=== PATIENT | female | born 1940 | race American Indian/Alaskan Native ===

== ENCOUNTER 2017-01-30 09:53 | Emergency (ER) | payer MEDICARE ==
[2017-01-30] MEDS ORDERED: PERCOCET 5/325 PO ONE (10:20)
[2017-01-30] MEDS ORDERED: LIDODERM 5% TD SCH (11:00)
--- NOTE | 2017-01-30 11:39 | Emergency Department Report ---
ED General Adult HPI - General Chief complaint: Back Pain/Injury Stated complaint: BACK PAIN Time Seen by Provider: 01/30/17 10:13 Source: patient, EMS Mode of arrival: Stretcher Limitations: Physical Limitation - History of Present Illness Initial comments: Patient system a 6-year-old female past medical history of diabetes who presents with back pain. Patient states that she has had back pain for months however her back pain is hurting more today. Patient states the pain is in her lower back as an achy type of pain it radiates all throughout her body. She says she try to take some pain medicine but didn't help much. Patient denies any paresthesia or bladder or bowel incontinence. Patient has had hardware placed in her back before. Severity scale (0 -10): 8 - Related Data Home Medications Medication Instructions Recorded Confirmed Last Taken Furosemide [Lasix TAB] 20 mg PO QDAY 11/29/16 12/04/16 Unknown Gabapentin [Neurontin] 300 mg PO Q8HR 11/29/16 11/30/16 Unknown HYDROcodone/APAP 5-325 [[place] 1 mg PO Q6HR PRN 11/29/16 12/04/16 Unknown 5-325 mg TAB] Hydralazine HCl [Apresoline TAB] 50 mg PO TID 11/29/16 12/04/16 Unknown Indomethacin [Indocin] 25 mg PO QDAY 11/29/16 12/04/16 Unknown PARoxetine [Paxil] 10 mg PO DAILY 11/29/16 11/30/16 Unknown Promethazine [Phenergan TAB] 25 mg PO Q6HR 11/29/16 12/04/16 Unknown Simvastatin [Zocor TAB] 40 mg PO QDAY 11/29/16 12/04/16 Unknown Sulindac 200 mg PO QDAY 11/29/16 12/04/16 Unknown Previous Rx's Medication Instructions Recorded Last Taken Type Aspirin [Adult Low Dose Aspirin EC] 81 mg PO QDAY #30 tablet. 12/05/16 Unknown Rx Levofloxacin [Levaquin TAB] 500 mg PO Q24HR #3 tablet 12/05/16 Unknown Rx Losartan [Cozaar] 100 mg PO QDAY #60 tablet 12/05/16 Unknown Rx Omeprazole 40 mg PO QDAY #30 capsule. 12/05/16 Unknown Rx Simvastatin [Zocor TAB] 40 mg PO QHS #30 tablet 12/05/16 Unknown Rx amLODIPine [Norvasc] 10 mg PO BID #60 tablet 12/05/16 Unknown Rx busPIRone [Buspar] 10 mg PO BID #60 tablet 12/05/16 Unknown Rx glipiZIDE [glipiZIDE ER] 2.5 mg PO QDAY #30 tab.er.24 12/05/16 Unknown Rx hydrALAZINE [Apresoline TAB] 100 mg PO Q8H #90 tab 12/05/16 Unknown Rx metFORMIN [Glucophage] 500 mg PO BID #60 tablet 12/05/16 Unknown Rx Allergies Allergy/AdvReac Type Severity Reaction Status Date / Time No Known Allergies Allergy Unverified 11/29/16 22:24 ED Review of Systems ROS: Stated complaint: BACK PAIN Other details as noted in HPI Constitutional: denies: chills, fever Eyes: denies: eye pain, eye discharge, vision change ENT: denies: ear pain, throat pain Respiratory: denies: cough, shortness of breath, wheezing Cardiovascular: denies: chest pain, palpitations Endocrine: no symptoms reported Gastrointestinal: denies: abdominal pain, nausea, diarrhea Genitourinary: denies: urgency, dysuria, discharge Musculoskeletal: back pain. denies: joint swelling, arthralgia Skin: denies: rash, lesions Neurological: denies: headache, weakness, paresthesias Psychiatric: denies: anxiety, depression Hematological/Lymphatic: denies: easy bleeding, easy bruising ED Past Medical Hx - Past Medical History Previous Medical History?: Yes Hx Hypertension: Yes Hx CVA: Yes Hx Diabetes: Yes - Surgical History Past Surgical History?: Yes Additional Surgical History: Back surgery - Social History Smoking Status: Never Smoker Substance Use Type: None - Medications Home Medications: Home Medications Medication Instructions Recorded Confirmed Last Taken Type Furosemide [Lasix TAB] 20 mg PO QDAY 11/29/16 12/04/16 Unknown History Gabapentin [Neurontin] 300 mg PO Q8HR 11/29/16 11/30/16 Unknown History HYDROcodone/APAP 5-325 [[place] 1 mg PO Q6HR PRN 11/29/16 12/04/16 Unknown History 5-325 mg TAB] Hydralazine HCl [Apresoline TAB] 50 mg PO TID 11/29/16 12/04/16 Unknown History Indomethacin [Indocin] 25 mg PO QDAY 11/29/16 12/04/16 Unknown History PARoxetine [Paxil] 10 mg PO DAILY 11/29/16 11/30/16 Unknown History Promethazine [Phenergan TAB] 25 mg PO Q6HR 11/29/16 12/04/16 Unknown History Simvastatin [Zocor TAB] 40 mg PO QDAY 11/29/16 12/04/16 Unknown History Sulindac 200 mg PO QDAY 11/29/16 12/04/16 Unknown History Aspirin [Adult Low Dose Aspirin EC] 81 mg PO QDAY #30 tablet. 12/05/16 Unknown Rx Levofloxacin [Levaquin TAB] 500 mg PO Q24HR #3 tablet 12/05/16 Unknown Rx Losartan [Cozaar] 100 mg PO QDAY #60 tablet 12/05/16 Unknown Rx Omeprazole 40 mg PO QDAY #30 capsule. 12/05/16 Unknown Rx Simvastatin [Zocor TAB] 40 mg PO QHS #30 tablet 12/05/16 Unknown Rx amLODIPine [Norvasc] 10 mg PO BID #60 tablet 12/05/16 Unknown Rx busPIRone [Buspar] 10 mg PO BID #60 tablet 12/05/16 Unknown Rx glipiZIDE [glipiZIDE ER] 2.5 mg PO QDAY #30 tab.er.24 12/05/16 Unknown Rx hydrALAZINE [Apresoline TAB] 100 mg PO Q8H #90 tab 12/05/16 Unknown Rx metFORMIN [Glucophage] 500 mg PO BID #60 tablet 12/05/16 Unknown Rx ED Physical Exam - General Limitations: Physical Limitation General appearance: alert, in no apparent distress - Head Head exam: Present: atraumatic, normocephalic - Eye Eye exam: Present: normal appearance - ENT ENT exam: Present: mucous membranes moist - Neck Neck exam: Present: normal inspection - Respiratory Respiratory exam: Present: normal lung sounds bilaterally. Absent: respiratory distress - Cardiovascular Cardiovascular Exam: Present: regular rate, normal rhythm. Absent: systolic murmur, diastolic murmur, rubs, gallop - GI/Abdominal GI/Abdominal exam: Present: soft, normal bowel sounds - Extremities Exam Extremities exam: Present: normal inspection - Back Exam Back exam: Present: normal inspection, paraspinal tenderness - Neurological Exam Neurological exam: Present: alert, oriented X3 - Psychiatric Psychiatric exam: Present: normal affect, normal mood - Skin Skin exam: Present: warm, dry, intact, normal color. Absent: rash ED Course Vital Signs 01/30/17 01/30/17 01/30/17 09:58 09:59 10:30 Temperature 98.1 F Pulse Rate 98 H Respiratory 16 Rate Blood Pressure 168/73 168/73 181/83 O2 Sat by Pulse 98 Oximetry 01/30/17 01/30/17 01/30/17 10:38 11:00 11:11 Temperature Pulse Rate Respiratory 16 16 Rate Blood Pressure 172/87 O2 Sat by Pulse 100 Oximetry 01/30/17 01/30/17 01/30/17 11:30 12:00 12:31 Temperature Pulse Rate Respiratory Rate Blood Pressure 162/85 146/81 158/70 O2 Sat by Pulse Oximetry ED Medical Decision Making - Medical Decision Making Chief medical diagnosis: Lumbar sacral strain Differential medical diagnosis: Slipped disc, hyperglycemia I'll give patient oral pain medication, Lidoderm patch and [id number] glucose. Patient is feeling better after pain medication and has a Lidoderm patch on I will send the patient home with follow-up with her PCP. Discussed with patient that she will not get any prescriptions for any opioid medications. Patient agrees with plan and additional verbal discharge instructions were given. Patient's euphg-kw-iciz glucose is 110. Critical care attestation.: If time is entered above; I have spent that time in minutes in the direct care of this critically ill patient, excluding procedure time. ED Disposition Clinical Impression: Lower back pain Qualifiers: Chronicity: chronic Back pain laterality: unspecified Sciatica presence: with sciatica Sciatica laterality: bilateral sciatica Qualified Code(s): M54.41 - Lumbago with sciatica, right side Disposition: -01 TO HOME OR SELFCARE Is pt being admited?: No Does the pt Need Aspirin: No Condition: Stable Instructions: Low Back Strain (ED) Referrals: PRIMARY CARE, [Primary Care Provider] - 3-5 Days
[2017-01-30 13:36] VITALS: BP 162/85
== END 2017-01-30 13:36 | disposition home or self-care (01) ==
LOC: ED 09:53
DX: M54.41 Lumbago with sciatica, right side (principal); I10 Essential (primary) hypertension; E11.9 Type 2 diabetes mellitus without complications
CPT/HCPCS: 82962

== ENCOUNTER 2017-02-17 00:58 | Inpatient (IN) | payer MEDICARE ==
[2017-02-17 02:52] LABS: Basophils % (Auto) 1.3 % (0.0-1.8); Eosinophils % (Auto) 1.4 % (0.0-4.3); Hemoglobin 12.2 gm/dl (10.1-14.3); Mean Corpuscular HGB Conc 33 % (30-34); Mean Corpuscular Hemoglobin 29 pg (28-32); Mean Corpuscular Volume 87 fl (79-97); Platelet Count 347 K/mm3 (140-440); Red Blood Count 4.28 M/mm3 (3.65-5.03); Red Cell Distribution Width 16.5 % (13.2-15.2); White Blood Count 8.8 K/mm3 (4.5-11.0)
[2017-02-17 03:01] LABS: Calcium 9.3 mg/dL (8.4-10.2); Chloride 91.1 mmol/L (98-107); Potassium 4.2 mmol/L (3.6-5.0)
--- NOTE | 2017-02-17 04:25 | XRay Report ---
FINAL REPORT EXAM: XR CHEST ROUTINE 2V HISTORY: Shortness of breath TECHNIQUE: Frontal and lateral radiographs of the chest were obtained. No prior studies are available for comparison. FINDINGS: The cardiac silhouette and mediastinum are within normal limits. The lungs are clear bilaterally, without focal infiltrate or effusion. There is no pneumothorax. There is a mild thoracic dextroscoliosis, with mild spondylotic and degenerative changes. There is partial visualization of spinal fixation rods and bilateral pedicle screws in the lower thoracic and visualized lumbar spine. IMPRESSION: No active disease seen in the chest.
--- NOTE | 2017-02-17 04:57 | XRay Report ---
FINAL REPORT EXAM: XR SPINE LUMBOSACRAL 2-3V HISTORY: increased back pain s/p back sx oct 2016 COMPARISONS: None. FINDINGS: AP and lateral portable views of the lumbar spine Patient with status post 4 level laminectomy, posterior discectomy and fusion in the lower thoracic and lumbar spine (probably T12 through L4. There is abnormal kyphosis at the thoracolumbar junction. The 2 most superior levels of hardware are not normally seated within vertebral bodies on lateral view. Ill-defined endplates of L1 foot may be secondary to vertebral body fracture. There is retropulsion of the T12-L1 disc spacer. No hardware fracture is identified. IMPRESSION: Posterior fusion hardware does not appear well seated within T12 and L1. The L1 vertebral body may be fractured. There is retropulsion of the T12-L1 disc spacer. Correlation with prior postoperative imaging is requested and spinal surgery consultation is recommended. Dr. Purvis discussed findings with Dr Multani at 0348 central Time on 02/17/2017 immediately following the examination.
--- NOTE | 2017-02-17 04:58 | XRay Report ---
FINAL REPORT EXAM: XR SPINE THORACIC 2V HISTORY: increased back pain s/p back surgery oct 2016 COMPARISONS: None. FINDINGS: AP and lateral portable views of the thoracic spine Partially imaged superior portion of patient's posterior fusion hardware at the thoracolumbar junction. There is abnormal kyphosis at the thoracolumbar junction. The 2 most superior levels of hardware are not normally seated within vertebral bodies on lateral view. Ill-defined endplates of L1 may be secondary to vertebral body fracture. There is retropulsion of the T12-L1 disc spacer. No hardware fracture is identified. IMPRESSION: Posterior fusion hardware does not appear well seated within T12 and L1, which is better demonstrated on lumbar spine radiographs of the same date. The L1 vertebral body may be fractured. There is retropulsion of the T12-L1 disc spacer. Correlation with prior postoperative imaging is requested and spinal surgery consultation is recommended. Dr. Purvis discussed findings with Dr Multani at 0348 central Time on 02/17/2017 immediately following the examination.
[2017-02-17 05:17] LABS: Bilirubin,Urine NEG (Negative); Blood,Urine NEG (Negative); Ketones,Urine NEG (Negative); Leukocyte Esterase,Urine SM (Negative); Nitrite,Urine NEG (Negative); Protein,Urine <15 mg/dL mg/dL (Negative); Urobilinogen,Urine < 2.0 mg/dL (<2.0)
[2017-02-17] MEDS ORDERED: ZOFRAN ONE (10:11)
[2017-02-17] MEDS ORDERED: MORPHINE ONE (10:11)
[2017-02-17] MEDS ORDERED: ZOFRAN IM ONE (10:15)
[2017-02-17] MEDS ORDERED: MORPHINE IM ONE (10:15)
[2017-02-17] MEDS ORDERED: NORCO 5/325 PO ONE (11:16)
[2017-02-17] MEDS ORDERED: NACL 0.9% 1000 ML 1,000 ML IV ONE (11:25)
--- NOTE | 2017-02-17 11:35 | Emergency Department Report ---
HPI - General Chief Complaint: Dyspnea/Respdistress Time Seen by Provider: 02/17/17 10:59 - HPI HPI: Room 8 The patient is a 76-year-old female presenting with a chief complaint back pain and hurting all over. Patient states she had back surgery with hardware was placed to the lumbar spine October 2016. The patient states since November she has had worsening pain in her back. Family states the pain is worsened in last night patient had difficulty getting out of bed. Patient states she feels as though there are pins cutting into her back. Family states patient's orthopedic surgeon (Dr. Soto [phone]) informed her that she did have some "screws loose" and her hardware and she needs to come to [place] to have it evaluated/addressed. Patient denies chest pain Location: Back Duration: Months Quality: Sticking Severity: Moderate Modifying factors: [see above] Context: [see above] Mode of transportation: [not driving] ED Past Medical Hx - Past Medical History Previous Medical History?: Yes Hx Hypertension: Yes Hx CVA: Yes Hx Diabetes: Yes - Surgical History Past Surgical History?: Yes Additional Surgical History: Back surgery 10/2016 - Family History Family history: no significant - Social History Smoking Status: Never Smoker Substance Use Type: None - Medications Home Medications: Home Medications Medication Instructions Recorded Confirmed Last Taken Type Furosemide [Lasix TAB] 20 mg PO QDAY 11/29/16 02/17/17 Unknown History Gabapentin [Neurontin] 300 mg PO Q8HR 11/29/16 02/17/17 Unknown History Aspirin [Adult Low Dose Aspirin EC] 81 mg PO QDAY #30 tablet. 12/05/16 Unknown Rx Losartan [Cozaar] 100 mg PO QDAY #60 tablet 12/05/16 02/17/17 Unknown Rx Omeprazole 40 mg PO QDAY #30 capsule. 12/05/16 02/17/17 Unknown Rx Simvastatin [Zocor TAB] 40 mg PO QHS #30 tablet 12/05/16 02/17/17 Unknown Rx amLODIPine [Norvasc] 10 mg PO BID #60 tablet 12/05/16 02/17/17 Unknown Rx busPIRone [Buspar] 10 mg PO BID #60 tablet 12/05/16 02/17/17 Unknown Rx glipiZIDE [glipiZIDE ER] 2.5 mg PO QDAY #30 tab.er.24 12/05/16 02/17/17 Unknown Rx hydrALAZINE [Apresoline TAB] 100 mg PO Q8H #90 tab 12/05/16 02/17/17 Unknown Rx metFORMIN [Glucophage] 500 mg PO BID #60 tablet 12/05/16 02/17/17 Unknown Rx ED Review of Systems ROS: Stated complaint: SOB, BACK PAIN AND ATAXIA Other details as noted in HPI Cardiovascular: denies: chest pain Musculoskeletal: back pain Physical Exam - Physical Exam Vital Signs: Vital Signs 02/17/17 02/17/17 02/17/17 01:56 10:14 10:25 Temperature 98.1 F 98.8 F Pulse Rate 101 H 85 Respiratory 16 18 18 Rate Blood Pressure 202/81 Blood Pressure 172/74 [Right] O2 Sat by Pulse 99 99 99 Oximetry Physical Exam: GENERAL: The patient is well-developed well-nourished female lying on stretcher not appearing to be in acute distress. [] HEENT: Normocephalic. Atraumatic. Extraocular motions are intact. Patient has moist mucous membranes. NECK: Trachea midline CHEST/LUNGS: Clear to auscultation. There is no respiratory distress noted. HEART/CARDIOVASCULAR: Regular. There is no tachycardia. There is no gallop rub or murmur. ABDOMEN: Abdomen is soft, nontender. Patient has normal bowel sounds. There is no abdominal distention. SKIN: There is no rash. There is no edema. There is no diaphoresis. NEURO: The patient is awake, alert, and oriented. The patient is cooperative. The patient has normal speech MUSCULOSKELETAL: There is lumbar tenderness to palpation. There is no evidence of acute injury. ED Course Vital Signs 02/17/17 02/17/17 02/17/17 01:56 10:14 10:25 Temperature 98.1 F 98.8 F Pulse Rate 101 H 85 Respiratory 16 18 18 Rate Blood Pressure 202/81 Blood Pressure 172/74 [Right] O2 Sat by Pulse 99 99 99 Oximetry - Consultations Consultation #1: 02/17/17 11:20 Patient's orthopedic surgeon office called ([phone]) and spoke with Nataliia- states that with the surgeon is currently in surgery but recommends patient's medical issues be addressed primarily before having the patient follow-up for her orthopedic hardware Consultation #2: 02/17/17 13:35 Orthopedic surgery paged ED Medical Decision Making - Lab Data Result diagrams: 02/17/17 02:27 02/17/17 02:27 Laboratory Tests 02/17/17 02/17/17 02/17/17 02:27 02:27 04:45 WBC 8.8 RBC 4.28 Hgb 12.2 Hct 37.0 MCV 87 MCH 29 MCHC 33 RDW 16.5 H Plt Count 347 Lymph % (Auto) 32.0 [place] % (Auto) 8.1 H Eos % (Auto) 1.4 Baso % (Auto) 1.3 Lymph # 2.8 [place] # 0.7 Eos # 0.1 Baso # 0.1 Seg Neutrophils % 57.2 Seg Neutrophils # 5.0 Sodium 128 L Potassium 4.2 Chloride 91.1 L Carbon Dioxide 17 L Anion Gap 24 BUN 31 H Creatinine 2.6 H Estimated GFR 22 BUN/Creatinine Ratio 12 Glucose 132 H Calcium 9.3 Troponin T 0.040 H Triglycerides 176 H Cholesterol 162 LDL Cholesterol Direct 83 HDL Cholesterol 44 Cholesterol/HDL Ratio 3.68 Urine Color Yellow Urine Turbidity Clear Urine pH 5.0 Ur Specific [place] 1.018 Urine Protein <15 mg/dl Urine Glucose (UA) Neg Urine Ketones Neg Urine Blood Neg Urine Nitrite Neg Urine Bilirubin Neg Urine Urobilinogen < 2.0 Ur Leukocyte Esterase Sm Urine WBC (Auto) 5.0 Urine RBC (Auto) 1.0 U Epithel Cells (Auto) 7.0 Hyaline Casts 1 - EKG Data -: EKG Interpreted by Me EKG shows normal: sinus rhythm Rate: tachycardia (101 bpm) - EKG Data When compared to previous EKG there are: previous EKG unavailable Interpretation: other (no ischemic changes seen) - Radiology Data Radiology results: report reviewed (lumbar spine x-ray, CT abdomen and pelvis), image reviewed (chest x-ray, thoracic spine x-ray, lumbar spine x-ray, CT abdomen and pelvis) interpreted by me: Chest x-ray-no focal infiltrates, no pneumothorax, thoracic spine [id number] malfunction of hardware of lumbar spine seen Lumbar spine [id number] in place. Superior screws do not appear to be anchored in vertebral body FINAL REPORT EXAM: XR SPINE LUMBOSACRAL 2-3V HISTORY: increased back pain s/p back sx oct 2016 COMPARISONS: None. FINDINGS: AP and lateral portable views of the lumbar spine Patient with status post 4 level laminectomy, posterior discectomy and fusion in the lower thoracic and lumbar spine (probably T12 through L4. There is abnormal kyphosis at the thoracolumbar junction. The 2 most superior levels of hardware are not normally seated within vertebral bodies on lateral view. Ill-defined endplates of L1 foot may be secondary to vertebral body fracture. There is retropulsion of the T12-L1 disc spacer. No hardware fracture is identified. IMPRESSION: Posterior fusion hardware does not appear well seated within T12 and L1. The L1 vertebral body may be fractured. There is retropulsion of the T12-L1 disc spacer. Correlation with prior postoperative imaging is requested and spinal surgery consultation is recommended. Dr. Moreira discussed findings with Dr Multani at 0348 central Time on 02/17/2017 immediately following the examination. Transcribed By: MB Dictated By: WILD MOREIRA MD Electronically Authenticated By: WILD MOREIRA MD Signed Date/Time: 02/17/1752 DD/ TD/TT: 02/17/1752 CT ABDOMEN PELVIS WITHOUT CONTRAST: HISTORY: Back pain, renal failure. COMPARISON: none. TECHNIQUE: Helical CT in 1.25mm intervals without IV contrast. Sagittal and coronal reconstructions. FINDINGS: Lung bases: normal. Liver: normal. Biliary system: The gallbladder has been surgically removed. No biliary dilatation is identified. Pancreas: normal. Spleen: normal. Kidneys/ureters/bladder: normal. Adrenal glands: normal. Aorta: normal. Intestines: normal. Appendix: Not confidently identified, correlate with surgical history. Pelvic viscera: Hysterectomy has been performed. No adnexal cyst or mass. Musculoskeletal: There is been previous posterior stabilization of the thoracolumbar spine from T12-L3. There is at least 1 cm anterolisthesis of T12 with respect to L1 on the sagittal reconstructed images. A disc spacer device appears displaced posteriorly. There are diffuse degenerative changes. No obvious acute fracture. IMPRESSION: No acute inflammatory process is appreciated. Surgical changes as described. Abnormal appearance of the posterior thoracolumbar fusion with spondylolisthesis. Consultation with orthopedics or neurosurgery is recommended. Transcribed By: ARJUN Dictated By: JEANCARLOS NOGUEIRA JR, MD Electronically Authenticated By: JEANCARLOS NOGUEIRA JR, MD Signed Date/Time: 02/17/171324 DD/ 21 TD/TT: 02/17/171324 - Differential Diagnosis renal colic, acute renal failure, hardware malfunction Critical care attestation.: If time is entered above; I have spent that time in minutes in the direct care of this critically ill patient, excluding procedure time. ED Disposition Clinical Impression: Back pain, Acute renal failure, Loosening of hardware in spine Disposition: OP ADMIT IP TO THIS HOSP Is pt being admited?: Yes Does the pt Need Aspirin: No Condition: Fair Referrals: RAISA YORK M.D. [Other] - 3-5 Days Time of Disposition: 13:36 (hospitalist Dr Luann ariza)
--- NOTE | 2017-02-17 13:30 | Cat Scan Report ---
CT ABDOMEN PELVIS WITHOUT CONTRAST: HISTORY: Back pain, renal failure. COMPARISON: none. TECHNIQUE: Helical CT in 1.25mm intervals without IV contrast. Sagittal and coronal reconstructions. FINDINGS: Lung bases: normal. Liver: normal. Biliary system: The gallbladder has been surgically removed. No biliary dilatation is identified. Pancreas: normal. Spleen: normal. Kidneys/ureters/bladder: normal. Adrenal glands: normal. Aorta: normal. Intestines: normal. Appendix: Not confidently identified, correlate with surgical history. Pelvic viscera: Hysterectomy has been performed. No adnexal cyst or mass. Musculoskeletal: There is been previous posterior stabilization of the thoracolumbar spine from T12-L3. There is at least 1 cm anterolisthesis of T12 with respect to L1 on the sagittal reconstructed images. A disc spacer device appears displaced posteriorly. There are diffuse degenerative changes. No obvious acute fracture. IMPRESSION: No acute inflammatory process is appreciated. Surgical changes as described. Abnormal appearance of the posterior thoracolumbar fusion with spondylolisthesis. Consultation with orthopedics or neurosurgery is recommended.
[2017-02-17] MEDS ORDERED: CATAPRES PO ONE (13:33)
--- NOTE | 2017-02-17 20:09 | History and Physical Report ---
History of Present Illness Date of examination: 02/17/17 Date of admission: 02/17/17 14:35 Chief complaint: CC Severe LBP 1 week History of present illness: CHENEGA 76 y/old female with pmh of HTN HLD T2DM PN and Lumbar radiculopathy s/p LS spine fusion comes in for severe LBP.Patient has some Hardware problems in LS spinal fusion region for which she is going to follow with her surgeon in [place] who was contacted. Patient being admitted for high creatinine.For IV hydration. Was admitted in november 2016 to this facility for Acute CVA and Acute encephalopathy.Was intubated at that time.Was stabilized and discharged to SNFHer Bun/cr at discharge was 32/1.4 Past Medical History Previous Medical History?: Yes Hx Hypertension: Yes Hx CVA: Yes Hx Diabetes: Yes - Surgical History Past Surgical History?: Yes Additional Surgical History: Back surgery 10/2016 - Family History Family history: no significant - Social History Smoking Status: Never Smoker Substance Use Type: None - Medications Home Medications: Home Medications Medication Instructions Recorded Confirmed Last Taken Type Furosemide [Lasix TAB] 20 mg PO QDAY 11/29/16 02/17/17 Unknown History Gabapentin [Neurontin] 300 mg PO Q8HR 11/29/16 02/17/17 Unknown History Aspirin [Adult Low Dose Aspirin EC] 81 mg PO QDAY #30 tablet. 12/05/16 Unknown Rx Losartan [Cozaar] 100 mg PO QDAY #60 tablet 12/05/16 02/17/17 Unknown Rx Omeprazole 40 mg PO QDAY #30 capsule. 12/05/16 02/17/17 Unknown Rx Simvastatin [Zocor TAB] 40 mg PO QHS #30 tablet 12/05/16 02/17/17 Unknown Rx amLODIPine [Norvasc] 10 mg PO BID #60 tablet 12/05/16 02/17/17 Unknown Rx busPIRone [Buspar] 10 mg PO BID #60 tablet 12/05/16 02/17/17 Unknown Rx glipiZIDE [glipiZIDE ER] 2.5 mg PO QDAY #30 tab.er.24 12/05/16 02/17/17 Unknown Rx hydrALAZINE [Apresoline TAB] 100 mg PO Q8H #90 tab 12/05/16 02/17/17 Unknown Rx metFORMIN [Glucophage] 500 mg PO BID #60 tablet 12/05/16 02/17/17 Unknown Rx Review of Systems ROS: Stated complaint: SOB, BACK PAIN AND ATAXIA Other details as noted in HPI Cardiovascular: denies: chest pain Musculoskeletal: back pain Medications and Allergies Allergies Allergy/AdvReac Type Severity Reaction Status Date / Time No Known Allergies Allergy Unverified 11/29/16 22:24 Home Medications Medication Instructions Recorded Confirmed Last Taken Type Furosemide [Lasix TAB] 20 mg PO QDAY 11/29/16 02/17/17 Unknown History Gabapentin [Neurontin] 300 mg PO Q8HR 11/29/16 02/17/17 Unknown History Aspirin [Adult Low Dose Aspirin EC] 81 mg PO QDAY #30 tablet. 12/05/16 Unknown Rx Losartan [Cozaar] 100 mg PO QDAY #60 tablet 12/05/16 02/17/17 Unknown Rx Omeprazole 40 mg PO QDAY #30 capsule. 12/05/16 02/17/17 Unknown Rx Simvastatin [Zocor TAB] 40 mg PO QHS #30 tablet 12/05/16 02/17/17 Unknown Rx amLODIPine [Norvasc] 10 mg PO BID #60 tablet 12/05/16 02/17/17 Unknown Rx busPIRone [Buspar] 10 mg PO BID #60 tablet 12/05/16 02/17/17 Unknown Rx glipiZIDE [glipiZIDE ER] 2.5 mg PO QDAY #30 tab.er.24 12/05/16 02/17/17 Unknown Rx hydrALAZINE [Apresoline TAB] 100 mg PO Q8H #90 tab 12/05/16 02/17/17 Unknown Rx metFORMIN [Glucophage] 500 mg PO BID #60 tablet 12/05/16 02/17/17 Unknown Rx Exam - Constitutional Vitals: Temp Pulse Resp BP Pulse Ox 97.6 F 79 18 129/51 97 02/17/17 19:56 02/17/17 19:56 02/17/17 19:56 02/17/17 19:56 02/17/17 19:56 General appearance: Present: no acute distress, well-nourished - EENT Eyes: Present: PERRL ENT: hearing intact, clear oral mucosa - Neck Neck: Present: supple, normal ROM - Respiratory Respiratory effort: normal Respiratory: bilateral: CTA - Cardiovascular Heart rate: 76 Rhythm: regular Heart Sounds: Present: S1 & S2. Absent: rub, click - Extremities Extremities: no ischemia, pulses intact, pulses symmetrical, No edema Peripheral Pulses: within normal limits - Abdominal General gastrointestinal: Present: soft, non-tender, non-distended, normal bowel sounds Female genitourinary: Present: normal - Rectal Rectal Exam: deferred - Integumentary Integumentary: Present: clear, warm, dry - Musculoskeletal Musculoskeletal: gait normal, strength equal bilaterally - Psychiatric Psychiatric: appropriate mood/affect, intact judgment & insight - Neurologic Neurologic: CNII-XII intact, moves all extremities - Allied Health Allied health notes reviewed: nursing Results - Labs CBC & Chem 7: 02/17/17 02:27 02/17/17 02:27 Labs: Laboratory Last Values WBC 8.8 K/mm3 (4.5-11.0) 02/17/17 02:27 RBC 4.28 M/mm3 (3.65-5.03) 02/17/17 02:27 Hgb 12.2 gm/dl (10.1-14.3) 02/17/17 02:27 Hct 37.0 % (30.3-42.9) 02/17/17 02:27 MCV 87 fl (79-97) 02/17/17 02:27 MCH 29 pg (28-32) 02/17/17 02:27 MCHC 33 % (30-34) 02/17/17 02:27 RDW 16.5 % (13.2-15.2) H 02/17/17 02:27 Plt Count 347 K/mm3 (140-440) 02/17/17 02:27 Lymph % (Auto) 32.0 % (13.4-35.0) 02/17/17 02:27 [place] % (Auto) 8.1 % (0.0-7.3) H 02/17/17 02:27 Eos % (Auto) 1.4 % (0.0-4.3) 02/17/17 02:27 Baso % (Auto) 1.3 % (0.0-1.8) 02/17/17 02:27 Lymph # 2.8 K/mm3 (1.2-5.4) 02/17/17 02:27 [place] # 0.7 K/mm3 (0.0-0.8) 02/17/17 02:27 Eos # 0.1 K/mm3 (0.0-0.4) 02/17/17 02:27 Baso # 0.1 K/mm3 (0.0-0.1) 02/17/17 02:27 Seg Neutrophils % 57.2 % (40.0-70.0) 02/17/17 02:27 Seg Neutrophils # 5.0 K/mm3 (1.8-7.7) 02/17/17 02:27 Sodium 128 mmol/L (137-145) L 02/17/17 02:27 Potassium 4.2 mmol/L (3.6-5.0) 02/17/17 02:27 Chloride 91.1 mmol/L (98-107) L 02/17/17 02:27 Carbon Dioxide 17 mmol/L (22-30) L 02/17/17 02:27 Anion Gap 24 mmol/L 02/17/17 02:27 BUN 31 mg/dL (7-17) H 02/17/17 02:27 Creatinine 2.6 mg/dL (0.7-1.2) H 02/17/17 02:27 Estimated GFR 22 ml/min 02/17/17 02:27 BUN/Creatinine Ratio 12 % 02/17/17 02:27 Glucose 132 mg/dL (65-100) H 02/17/17 02:27 Calcium 9.3 mg/dL (8.4-10.2) 02/17/17 02:27 Troponin T 0.040 ng/mL (0.00-0.029) H 02/17/17 02:27 Triglycerides 176 mg/dL (2-149) H 02/17/17 02:27 Cholesterol 162 mg/dL (50-199) 02/17/17 02:27 LDL Cholesterol Direct 83 mg/dL (50-130) 02/17/17 02:27 HDL Cholesterol 44 mg/dL (40-59) 02/17/17 02:27 Cholesterol/HDL Ratio 3.68 % 02/17/17 02:27 Urine Color Yellow (Yellow) 02/17/17 04:45 Urine Turbidity Clear (Clear) 02/17/17 04:45 Urine pH 5.0 (5.0-7.0) 02/17/17 04:45 Ur Specific [place] 1.018 (1.003-1.030) 02/17/17 04:45 Urine Protein <15 mg/dl mg/dL (Negative) 02/17/17 04:45 Urine Glucose (UA) Neg mg/dL (Negative) 02/17/17 04:45 Urine Ketones Neg mg/dL (Negative) 02/17/17 04:45 Urine Blood Neg (Negative) 02/17/17 04:45 Urine Nitrite Neg (Negative) 02/17/17 04:45 Urine Bilirubin Neg (Negative) 02/17/17 04:45 Urine Urobilinogen < 2.0 mg/dL (<2.0) 02/17/17 04:45 Ur Leukocyte Esterase Sm (Negative) 02/17/17 04:45 Urine WBC (Auto) 5.0 /HPF (0.0-6.0) 02/17/17 04:45 Urine RBC (Auto) 1.0 /HPF (0.0-6.0) 02/17/17 04:45 U Epithel Cells (Auto) 7.0 /HPF (0-13.0) 02/17/17 04:45 Hyaline Casts 1 /LPF 02/17/17 04:45 - Imaging and Cardiology EKG: report reviewed Assessment and Plan Advance Directives: Yes (Full code) VTE prophylaxis?: Chemical Plan of care discussed with patient/family: Yes - Patient Problems (1) Acute renal failure Current Visit: Yes Status: Acute Qualifiers: Acute renal failure type: with acute tubular necrosis Qualified Code(s): N17.0 - Acute kidney failure with tubular necrosis Plan to address problem: IV fluids for now. Etio unclear.No Vomiting or diarrhea. .Not on any Nephrotoxic agents. Baseline Bun/cr was 32/1.4..Now Bun/cr 31/2.6. Patient on Furosemide which maybe the cause.Hold Furosemide for now. (2) Loosening of hardware in spine Current Visit: Yes Status: Acute Plan to address problem: F/u with her Orthopedic surgeon as outpatint in [place]. (3) Hyponatremia Current Visit: Yes Status: Acute Plan to address problem: IV fluids for now. Sec to Furosemide (4) HTN (hypertension) Current Visit: Yes Status: Chronic Qualifiers: Hypertension type: essential hypertension Qualified Code(s): I10 - Essential (primary) hypertension Plan to address problem: Cont Losartan and Amlodipine (5) T2DM (type 2 diabetes mellitus) Current Visit: Yes Status: Chronic Qualifiers: Diabetes mellitus complication status: without complication Diabetes mellitus director long term care insulin use: without director long term care use Qualified Code(s): E11.9 - Type 2 diabetes mellitus without complications Plan to address problem: Hold Metformin and cont Glipizide (6) CVA (cerebral vascular accident) Current Visit: Yes Status: Chronic Qualifiers: Precerebral and cerebral artery: middle cerebral artery Plan to address problem: Supportive care.Cont coverage (7) Elevated troponin level Current Visit: Yes Status: Acute Plan to address problem: Sec to elevated Cr. Will trend Troponin (8) DVT prophylaxis Current Visit: Yes Status: Acute Plan to address problem: On lovenox
[2017-02-17] MEDS ORDERED: NON-FORMULARY (Losartan [Cozaar] 100 MG) PO SCH (20:15)
[2017-02-17] MEDS ORDERED: GLUCOTROL XL PO SCH (21:00)
[2017-02-17] MEDS ORDERED: NON-FORMULARY (Simvastatin 40 MG) PO SCH (22:00)
[2017-02-17] MEDS: NEURONTIN PO SCH (22:06)
[2017-02-17] MEDS: HALFPRIN EC PO SCH (22:06)
[2017-02-17] MEDS: NOVOLOG SUB-Q SCH (22:30)
[2017-02-17] MEDS: MORPHINE IV PRN (22:33)
[2017-02-17] MEDS: PRAVACHOL PO SCH (22:37)
[2017-02-17] MEDS: BUSPAR PO SCH (22:38)
[2017-02-17] MEDS: GLUCOTROL XL PO SCH (23:00)
[2017-02-17] MEDS: APRESOLINE PO SCH (23:00)
[2017-02-17] MEDS: COZAAR PO SCH (23:00)
[2017-02-17] MEDS: NORVASC PO SCH (23:00)
[2017-02-18] MEDS: NEURONTIN PO SCH ×3 (06:14→22:10)
[2017-02-18] MEDS: MORPHINE IV PRN ×3 (06:16→22:32)
[2017-02-18] MEDS: APRESOLINE PO SCH ×3 (06:17→22:11)
[2017-02-18] MEDS ORDERED: GLUCOTROL XL PO SCH (08:00)
[2017-02-18] MEDS: NOVOLOG SUB-Q SCH ×4 (08:00→22:00)
--- NOTE | 2017-02-18 08:04 | Progress Note ---
Assessment and Plan Assessment and plan: --Acute Renal failure; vasomotor nephropathy, IV fluids, closely monitor renal function, avoid nephrotoxic medications, nephrology if needed --Hyponatremia; replacement therapy, closely monitor sodium levels --Metabolic acidosis; vigorous IV hydration, secondary to acute kidney injury --Spinal Hardware failure /malfunction; orthopedic evaluation --Positive cardiac enzymes; probably secondary to renal failure serial cardiac enzymes and EKG, consider cardiology evaluation if needed --Type 2 diabetes mellitus; Accu-Chek sliding scale coverage and ADA diet, resume oral hypoglycemics if needed, A1c less than 6 --Hypertension; well controlled, continue current antihypertensives and when necessary medications --Dyslipidemia; on lipid-lowering medications --DVT prophylaxis with Lovenox renal dose -- full CODE STATUS --Discharge planning to case management and medically stable History Interval history: Since seen and examined medical records reviewed No new complaints Vital signs stable Hospitalist Physical - Constitutional Vitals: Temp Pulse Resp BP Pulse Ox 97.8 F 74 18 132/56 96 02/18/17 07:50 02/18/17 07:50 02/18/17 07:50 02/18/17 07:50 02/18/17 07:50 General appearance: Present: no acute distress, well-nourished - EENT Eyes: Present: PERRL, EOM intact - Neck Neck: Present: supple, normal ROM - Respiratory Respiratory effort: normal Respiratory: bilateral: diminished, negative: rales, rhonchi, wheezing - Cardiovascular Rhythm: regular Heart Sounds: Present: S1 & S2 - Extremities Extremities: no ischemia, No edema Peripheral Pulses: within normal limits - Abdominal General gastrointestinal: soft, non-tender, non-distended - Integumentary Integumentary: Present: clear, warm - Psychiatric Psychiatric: appropriate mood/affect, cooperative - Neurologic Neurologic: CNII-XII intact, moves all extremities Results - Labs CBC & Chem 7: 02/17/17 02:27 02/17/17 02:27 Labs: Laboratory Last Values WBC 8.8 K/mm3 (4.5-11.0) 02/17/17 02:27 RBC 4.28 M/mm3 (3.65-5.03) 02/17/17 02:27 Hgb 12.2 gm/dl (10.1-14.3) 02/17/17 02:27 Hct 37.0 % (30.3-42.9) 02/17/17 02:27 MCV 87 fl (79-97) 02/17/17 02:27 MCH 29 pg (28-32) 02/17/17 02:27 MCHC 33 % (30-34) 02/17/17 02:27 RDW 16.5 % (13.2-15.2) H 02/17/17 02:27 Plt Count 347 K/mm3 (140-440) 02/17/17 02:27 Lymph % (Auto) 32.0 % (13.4-35.0) 02/17/17 02:27 [place] % (Auto) 8.1 % (0.0-7.3) H 02/17/17 02:27 Eos % (Auto) 1.4 % (0.0-4.3) 02/17/17 02:27 Baso % (Auto) 1.3 % (0.0-1.8) 02/17/17 02:27 Lymph # 2.8 K/mm3 (1.2-5.4) 02/17/17 02:27 [place] # 0.7 K/mm3 (0.0-0.8) 02/17/17 02:27 Eos # 0.1 K/mm3 (0.0-0.4) 02/17/17 02:27 Baso # 0.1 K/mm3 (0.0-0.1) 02/17/17 02:27 Seg Neutrophils % 57.2 % (40.0-70.0) 02/17/17 02:27 Seg Neutrophils # 5.0 K/mm3 (1.8-7.7) 02/17/17 02:27 Sodium 128 mmol/L (137-145) L 02/17/17 02:27 Potassium 4.2 mmol/L (3.6-5.0) 02/17/17 02:27 Chloride 91.1 mmol/L (98-107) L 02/17/17 02:27 Carbon Dioxide 17 mmol/L (22-30) L 02/17/17 02:27 Anion Gap 24 mmol/L 02/17/17 02:27 BUN 31 mg/dL (7-17) H 02/17/17 02:27 Creatinine 2.6 mg/dL (0.7-1.2) H 02/17/17 02:27 Estimated GFR 22 ml/min 02/17/17 02:27 BUN/Creatinine Ratio 12 % 02/17/17 02:27 Glucose 132 mg/dL (65-100) H 02/17/17 02:27 POC Glucose 116 (70-105) H 02/17/17 22:10 Hemoglobin A1c 5.9 % (4-6) 02/18/17 04:03 Calcium 9.3 mg/dL (8.4-10.2) 02/17/17 02:27 Troponin T 0.040 ng/mL (0.00-0.029) H 02/17/17 02:27 Triglycerides 176 mg/dL (2-149) H 02/17/17 02:27 Cholesterol 162 mg/dL (50-199) 02/17/17 02:27 LDL Cholesterol Direct 83 mg/dL (50-130) 02/17/17 02:27 HDL Cholesterol 44 mg/dL (40-59) 02/17/17 02:27 Cholesterol/HDL Ratio 3.68 % 02/17/17 02:27 Urine Color Yellow (Yellow) 02/17/17 04:45 Urine Turbidity Clear (Clear) 02/17/17 04:45 Urine pH 5.0 (5.0-7.0) 02/17/17 04:45 Ur Specific [place] 1.018 (1.003-1.030) 02/17/17 04:45 Urine Protein <15 mg/dl mg/dL (Negative) 02/17/17 04:45 Urine Glucose (UA) Neg mg/dL (Negative) 02/17/17 04:45 Urine Ketones Neg mg/dL (Negative) 02/17/17 04:45 Urine Blood Neg (Negative) 02/17/17 04:45 Urine Nitrite Neg (Negative) 02/17/17 04:45 Urine Bilirubin Neg (Negative) 02/17/17 04:45 Urine Urobilinogen < 2.0 mg/dL (<2.0) 02/17/17 04:45 Ur Leukocyte Esterase Sm (Negative) 02/17/17 04:45 Urine WBC (Auto) 5.0 /HPF (0.0-6.0) 02/17/17 04:45 Urine RBC (Auto) 1.0 /HPF (0.0-6.0) 02/17/17 04:45 U Epithel Cells (Auto) 7.0 /HPF (0-13.0) 02/17/17 04:45 Hyaline Casts 1 /LPF 02/17/17 04:45
[2017-02-18] MEDS: GLUCOTROL XL PO SCH (08:59)
[2017-02-18] MEDS: HALFPRIN EC PO SCH (09:50)
[2017-02-18] MEDS: BUSPAR PO SCH ×2 (09:59→22:10)
[2017-02-18] MEDS: PROTONIX PO SCH (09:59)
[2017-02-18] MEDS ORDERED: NON-FORMULARY (Omeprazole [Omeprazole] 40 MG) PO SCH (10:00)
[2017-02-18] MEDS: COZAAR PO SCH (10:03)
[2017-02-18] MEDS: NORVASC PO SCH ×2 (10:04→22:10)
[2017-02-18] MEDS ORDERED: NACL 0.9% 1000 ML 1,000 ML IV SCH (19:00)
[2017-02-18] MEDS: PRAVACHOL PO SCH (22:10)
[2017-02-19 04:50] LABS: Basophils % (Auto) 0.7 % (0.0-1.8); Hematocrit 33.5 % (30.3-42.9); Hemoglobin 11.2 gm/dl (10.1-14.3); Mean Corpuscular HGB Conc 33 % (30-34); Mean Corpuscular Hemoglobin 29 pg (28-32); Mean Corpuscular Volume 85 fl (79-97); Platelet Count 302 K/mm3 (140-440); Red Blood Count 3.92 M/mm3 (3.65-5.03); White Blood Count 7.7 K/mm3 (4.5-11.0)
[2017-02-19 05:04] LABS: Calcium 8.9 mg/dL (8.4-10.2); Chloride 99.4 mmol/L (98-107); Magnesium 1.4 mg/dL (1.7-2.3); Potassium 4.6 mmol/L (3.6-5.0)
[2017-02-19] MEDS: APRESOLINE PO SCH ×3 (06:03→21:00)
[2017-02-19] MEDS: NEURONTIN PO SCH ×4 (06:03→23:10)
[2017-02-19] MEDS: MORPHINE IV PRN ×2 (06:21→14:05)
[2017-02-19] MEDS: NOVOLOG SUB-Q SCH ×4 (08:24→22:30)
[2017-02-19] MEDS: GLUCOTROL XL PO SCH (09:00)
[2017-02-19] MEDS: HALFPRIN EC PO SCH (09:19)
[2017-02-19] MEDS: BUSPAR PO SCH ×2 (09:20→23:10)
[2017-02-19] MEDS: PROTONIX PO SCH (09:20)
[2017-02-19] MEDS: COZAAR PO SCH (09:21)
[2017-02-19] MEDS: NORVASC PO SCH ×2 (09:21→23:08)
--- NOTE | 2017-02-19 11:08 | Discharge Summary ---
Providers - Providers Date of Admission: 02/17/17 14:35 Date of discharge: 02/19/17 Attending physician: RICHARDSON MAYS 02/17/17 13:36 Consult to Physician [CONS] Urgent Consulting Provider: LESLIE MUNOZ Reason For Exam: spinal hardware failure Place consult to:: phone Notified:: y Hospitalization Condition: Fair Pertinent studies: Thoracic x-ray which showed posterior fusion hardware that we will sealed in T12 and L2 patient also had abdominal pelvis CT which showed spinal hardware fusion abnormality and normal. Abnormal appearance of lumbar fusion Hospital course: Patient presented with painful ambulation feeling bad all over. Was found to be dehydrated on Lasix. Patient also had difficulty ambulating secondary to pain. Workup for that revealed loosening hardware of previous lumbar surgery. Patient will require following up with her orthopedic surgeons in [place] Disposition: [id number] HOME UNDER HOME HLTH - Discharge Diagnoses (1) Acute renal failure Status: Acute Qualifiers: Acute renal failure type: with acute tubular necrosis Qualified Code(s): N17.0 - Acute kidney failure with tubular necrosis Comment: Acute renal failure resolved will not give Lasix at this particular time. Was secondary to prerenal azotemia (2) Back pain Status: Acute Qualifiers: Back pain location: back pain in other location Chronicity: acute Qualified Code(s): M54.9 - Dorsalgia, unspecified Comment: Patient has abnormal glucose and hardware at surgical site. Will need a follow-up evaluation with orthopedic surgeon. (3) Elevated troponin level Status: Resolved (4) Loosening of hardware in spine Status: Acute (5) T2DM (type 2 diabetes mellitus) Status: Chronic Qualifiers: Diabetes mellitus complication status: without complication Diabetes mellitus fpc insulin use: without commercial loan closer use Qualified Code(s): E11.9 - Type 2 diabetes mellitus without complications Comment: Currently well-controlled continue metformin and Glucotrol. (6) CVA (cerebral vascular accident) Status: Acute Comment: Continue statin and aspirin. This was from past admission. Core Measure Documentation - Palliative Care Palliative Care/ Comfort Measures: Not Applicable - Core Measures Any of the following diagnoses?: none Exam - Constitutional Vitals: Temp Pulse Resp BP Pulse Ox 98.1 F 86 18 112/82 94 02/19/17 08:00 02/19/17 09:21 02/19/17 08:00 02/19/17 09:21 02/19/17 08:00 General appearance: Present: no acute distress, well-nourished - EENT Eyes: Present: PERRL ENT: hearing intact, clear oral mucosa - Neck Neck: Present: supple, normal ROM - Respiratory Respiratory effort: normal - Cardiovascular Heart Sounds: Present: S1 & S2. Absent: rub, click - Extremities Extremities: no ischemia, pulses intact Extremity abnormal: tenderness, other (diffuse tenderness some weakness and decreased range of motion. Patient able to ambulate but is in pain.) Peripheral Pulses: within normal limits - Abdominal General gastrointestinal: Present: soft, non-tender, non-distended, normal bowel sounds - Musculoskeletal Musculoskeletal: generalized weakness - Psychiatric Psychiatric: appropriate mood/affect, intact judgment & insight - Neurologic Neurologic: CNII-XII intact, moves all extremities Plan Activity: fall precautions Weight Bearing Status: Weight Bear as Tolerated Diet: diabetic Special Instructions: record daily BP diary, no heavy lifting, physical therapy Follow up with: RAISA YORK M.D. [Other] - 3-5 Days Prescriptions: amLODIPine [Norvasc] 10 mg PO BID #60 tablet Aspirin [Adult Low Dose Aspirin EC] 81 mg PO QDAY #30 tablet. busPIRone [Buspar] 10 mg PO BID #60 tablet Gabapentin [Neurontin] 300 mg PO Q8HR #90 capsule glipiZIDE [glipiZIDE ER] 2.5 mg PO QDAY #30 tab.er.24 hydrALAZINE [Apresoline TAB] 100 mg PO Q8H #90 tab Losartan [Cozaar] 100 mg PO QDAY #30 tablet Pantoprazole [Protonix TAB] 40 mg PO DAILY #30 tablet Simvastatin [Zocor TAB] 40 mg PO QHS #30 tablet
[2017-02-19] MEDS ORDERED: PERCOCET 5/325 PO ONE (23:00)
[2017-02-19] MEDS: PRAVACHOL PO SCH (23:10)
[2017-02-20] MEDS ORDERED: PERCOCET 5/325 PO ONE (01:15)
[2017-02-20] MEDS: MORPHINE IV PRN ×2 (02:47→05:56)
[2017-02-20] MEDS: NEURONTIN PO SCH (05:55)
[2017-02-20] MEDS: APRESOLINE PO SCH (05:56)
[2017-02-20] MEDS: NOVOLOG SUB-Q SCH (07:48)
[2017-02-20] MEDS: GLUCOTROL XL PO SCH (07:56)
--- NOTE | 2017-02-20 08:23 | Event Note ---
Date: 02/20/17 Patient could not go home because family members cannot take care of her in this condition. Patient finds it painful and difficult to ambulate with surgical screws causing discomfort. Therefore will discharge to rehabilitation facility.
--- NOTE | 2017-02-20 08:28 | Progress Note ---
Assessment and Plan - Patient Problems (1) Acute renal failure Current Visit: Yes Status: Acute Qualifiers: Acute renal failure type: with acute tubular necrosis Qualified Code(s): N17.0 - Acute kidney failure with tubular necrosis Plan to address problem: Q renal failure secondary to prerenal azotemia resolving with IV volume replacement. Follow renal function periodically. Also will avoid NSAIDs and nephrotoxic agents as much as possible. (2) Back pain Current Visit: Yes Status: Acute Qualifiers: Back pain location: back pain in other location Chronicity: acute Qualified Code(s): M54.9 - Dorsalgia, unspecified Plan to address problem: Secondary to hardware failure with lumbar fusion. Patient will follow with surgeons that previously did a procedure for surgical correction and further rehabilitation. Until that time he has been very difficult for patient to get around without pain and son cannot take care of patient in this condition therefore will go to rehabilitation facility. Case management aware. (3) Elevated troponin level Current Visit: Yes Status: Resolved Plan to address problem: Secondary to prerenal as a team yet resolved. (4) Loosening of hardware in spine Current Visit: Yes Status: Acute Plan to address problem: See back pain will need surgical correction. (5) T2DM (type 2 diabetes mellitus) Current Visit: Yes Status: Chronic Qualifiers: Diabetes mellitus complication status: without complication Diabetes mellitus termite exterminator insulin use: without termite exterminator use Qualified Code(s): E11.9 - Type 2 diabetes mellitus without complications Plan to address problem: Clancy has fair control of diabetes continue sliding scale insulin. An oral hypoglycemic agents. History Interval history: Discussed with patient and family member's son about rehabilitation facility and spinal hardware fusion abnormality. Reason for her discomfort. Hospitalist Physical - Constitutional Vitals: Temp Pulse Resp BP Pulse Ox 98.7 F 86 18 156/57 100 02/20/17 07:19 02/20/17 07:19 02/20/17 07:19 02/20/17 07:19 02/20/17 07:19 General appearance: Present: no acute distress, well-nourished - EENT Eyes: Present: PERRL, EOM intact ENT: hearing intact, clear oral mucosa, dentition normal - Neck Neck: Present: supple, normal ROM - Respiratory Respiratory effort: normal - Cardiovascular Rhythm: regular - Extremities Extremities: no ischemia, pulses intact, pulses symmetrical, No edema, normal temperature Peripheral Pulses: within normal limits - Abdominal General gastrointestinal: soft, non-tender, non-distended - Psychiatric Psychiatric: appropriate mood/affect, cooperative - Neurologic Neurologic: CNII-XII intact Results - Labs CBC & Chem 7: 02/19/17 03:30 12 03:30 Labs: Laboratory Last Values WBC 7.7 K/mm3 (4.5-11.0) 02/19/17 03:30 RBC 3.92 M/mm3 (3.65-5.03) 02/19/17 03:30 Hgb 11.2 gm/dl (10.1-14.3) 02/19/17 03:30 Hct 33.5 % (30.3-42.9) 02/19/17 03:30 MCV 85 fl (79-97) 02/19/17 03:30 MCH 29 pg (28-32) 02/19/17 03:30 MCHC 33 % (30-34) 02/19/17 03:30 RDW 16.0 % (13.2-15.2) H 02/19/17 03:30 Plt Count 302 K/mm3 (140-440) 02/19/17 03:30 Lymph % (Auto) 45.4 % (13.4-35.0) H 02/19/17 03:30 [place] % (Auto) 9.4 % (0.0-7.3) H 02/19/17 03:30 Eos % (Auto) 4.0 % (0.0-4.3) 02/19/17 03:30 Baso % (Auto) 0.7 % (0.0-1.8) 02/19/17 03:30 Lymph # 3.5 K/mm3 (1.2-5.4) 02/19/17 03:30 [place] # 0.7 K/mm3 (0.0-0.8) 02/19/17 03:30 Eos # 0.3 K/mm3 (0.0-0.4) 02/19/17 03:30 Baso # 0.1 K/mm3 (0.0-0.1) 02/19/17 03:30 Seg Neutrophils % 40.5 % (40.0-70.0) 02/19/17 03:30 Seg Neutrophils # 3.1 K/mm3 (1.8-7.7) 02/19/17 03:30 Sodium 137 mmol/L (137-145) D 02/19/17 03:30 Potassium 4.6 mmol/L (3.6-5.0) 02/19/17 03:30 Chloride 99.4 mmol/L (98-107) 02/19/17 03:30 Carbon Dioxide 25 mmol/L (22-30) D 02/19/17 03:30 Anion Gap 17 mmol/L 02/19/17 03:30 BUN 26 mg/dL (7-17) H 02/19/17 03:30 Creatinine 1.6 mg/dL (0.7-1.2) H 02/19/17 03:30 Estimated GFR 38 ml/min 02/19/17 03:30 BUN/Creatinine Ratio 16 % 02/19/17 03:30 Glucose 132 mg/dL (65-100) H 02/19/17 03:30 POC Glucose 176 (70-105) H 02/20/17 07:45 Hemoglobin A1c 5.9 % (4-6) 02/18/17 04:03 Calcium 8.9 mg/dL (8.4-10.2) 02/19/17 03:30 Magnesium 1.40 mg/dL (1.7-2.3) L 02/19/17 03:30 Troponin T 0.040 ng/mL (0.00-0.029) H 02/17/17 02:27 Triglycerides 176 mg/dL (2-149) H 02/17/17 02:27 Cholesterol 162 mg/dL (50-199) 02/17/17 02:27 LDL Cholesterol Direct 83 mg/dL (50-130) 02/17/17 02:27 HDL Cholesterol 44 mg/dL (40-59) 02/17/17 02:27 Cholesterol/HDL Ratio 3.68 % 02/17/17 02:27 Urine Color Yellow (Yellow) 02/17/17 04:45 Urine Turbidity Clear (Clear) 02/17/17 04:45 Urine pH 5.0 (5.0-7.0) 02/17/17 04:45 Ur Specific [place] 1.018 (1.003-1.030) 02/17/17 04:45 Urine Protein <15 mg/dl mg/dL (Negative) 02/17/17 04:45 Urine Glucose (UA) Neg mg/dL (Negative) 02/17/17 04:45 Urine Ketones Neg mg/dL (Negative) 02/17/17 04:45 Urine Blood Neg (Negative) 02/17/17 04:45 Urine Nitrite Neg (Negative) 02/17/17 04:45 Urine Bilirubin Neg (Negative) 02/17/17 04:45 Urine Urobilinogen < 2.0 mg/dL (<2.0) 02/17/17 04:45 Ur Leukocyte Esterase Sm (Negative) 02/17/17 04:45 Urine WBC (Auto) 5.0 /HPF (0.0-6.0) 02/17/17 04:45 Urine RBC (Auto) 1.0 /HPF (0.0-6.0) 02/17/17 04:45 U Epithel Cells (Auto) 7.0 /HPF (0-13.0) 02/17/17 04:45 Hyaline Casts 1 /LPF 02/17/17 04:45
--- NOTE | 2017-02-20 08:36 | Event Note ---
Date: 02/20/17 son changed his mind and wanted to take the patient back to [place] where her surgeons were to have the surgical correction done. Therefore patient will be discharged as we did yesterday. Same discharge summary unchanged.
[2017-02-20] MEDS: PROTONIX PO SCH (09:26)
[2017-02-20] MEDS: HALFPRIN EC PO SCH (09:26)
[2017-02-20] MEDS: COZAAR PO SCH (09:26)
[2017-02-20] MEDS: NORVASC PO SCH (09:27)
[2017-02-20 09:29] VITALS: BP 138/70
[2017-02-20] MEDS: BUSPAR PO SCH (09:29)
[2017-02-20] MEDS ORDERED: PERCOCET 5/325 PO NR (11:30)
== END 2017-02-20 11:50 | DRG 683 ==
LOC: ED 00:58 → 2B-ACE 14:35
PROVIDERS: ADMIT Internal Medicine; ATTEND Internal Medicine
DX: N17.0 Acute kidney failure with tubular necrosis (principal); T84.84XA Pain due to internal orthopedic prosthetic devices, implants and grafts, initial encounter; E87.1 Hypo-osmolality and hyponatremia; E87.2 Acidosis; I10 Essential (primary) hypertension; E78.5 Hyperlipidemia, unspecified; Z86.73 Personal history of transient ischemic attack (TIA), and cerebral infarction without residual deficits; Z79.82 Long term (current) use of aspirin; Z79.899 Other long term (current) drug therapy; E11.9 Type 2 diabetes mellitus without complications
CPT/HCPCS: 36415; 71020; 72070; 72100; 74176; 80048; 80061; 81001; 82962; 83036; 83735; 84484; 85025; 93005; 93010; 96372; A9270-GY; J1815; J2270; J2405; J7030